=== PATIENT | female | born 2000 | race Caucasian/White ===

== ENCOUNTER 2021-12-16 11:34 | Emergency (ER) | payer MEDICAID, SELFPAY ==
[2021-12-16 11:47] VITALS: BP 117/64; PULSE 78; RESP 18; TEMP 36.9; O2SAT 98; BMI 33.4
--- NOTE | 2021-12-16 13:40 | ED.GENADULT ---
HPI - General Adult General Chief complaint: General Medical Stated complaint: work inj, stuck by needle Time Seen by Provider: 12/16/21 13:40 Source: patient Mode of arrival: ambulatory History of Present Illness HPI narrative: 21-year-old female with no significant past medical history presenting to the ED s/p accidental needle stick to left thumb while doing blood drawn patient [employer]. Reports washing area immediately after incident. Vaccinations including tetanus up-to-date. Reports patient was agreeable to be tested for hepatitis/HIV at her work Onset (ago): day(s) Related Data Allergies Allergy/AdvReac Type Severity Reaction Status Date / Time No Known Allergies Allergy Verified 12/16/21 13:41 Review of Systems Review of Systems: Constitutional: No Fever, No Chills ENT/Mouth: No Ear Pain, No Nasal Congestion, No sore throat, No Rhinorrhea, No Swallowing Difficulty Cardiovascular: No Chest Pain, No SOB Respiratory: No Cough, No Sputum Gastrointestinal: No Nausea, No Vomiting, No Diarrhea, No Constipation, No Abdominal pain Genitourinary: No Dysuria, No Urinary Frequency, No Hematuria Musculoskeletal: No joint pain, No Myalgias, No Joint Swelling Skin: + Skin Lesions, No rash Neuro: No Weakness, No Numbness, No Paresthesias Yes all other systems are reviewed and are negative Constitutional: Constitutional: Reports as per [facility] Past Medical History Attestation statement: The following information was validated with the patient. Social History Social History Advance Directives: No Advance Directives Information Provided: Yes Physical Exam ED Vital Signs: Vital Signs - 24 hr 12/16/21 11:47 Temperature 98.4 F Pulse Rate 78 Respiratory Rate 18 Blood Pressure 117/64 Pulse Oximetry 98 Oxygen Delivery Method Room Air BMI result Body Mass Index 33.4 Const General: cooperative, healthy appearing and no acute distress Orientation/consciousness: patient oriented x3 Limitations: no limitations HENMT Head: Yes normal to inspection and Yes atraumatic Ears: hearing grossly normal bilaterally General nose exam: Normal external nose present Face and sinus: Yes normal facial exam Eyes General: appearance normal, both eyes and all related structures EOM: EOMs intact bilaterally Neck Neck: Yes normal visual inspection and Yes no meningeal signs Resp Effort & Inspection: normal respiratory effort and no respiratory distress Cardio Rate: regular rate Heart sounds: S1 normal heart sound present and S2 normal heart sound present Peripheral pulses: radial pulses present and ulnar radial pulses present Skin Rashes: no rashes Wounds: no wounds Neuro General: patient oriented x3, tone normal and no meningeal signs Gait exam (Neuro): Normal gait present Extrem General: Yes normal to inspection Course Course Course Narrative: -labs unremarkable. Discussed initiating PEP with patient which she is agreeable, will give 1st 4 days worth of doses in the ED Medical Decision Making MDM Narrative Medical decision making narrative: 21-year-old female with no significant past medical history presenting to the ED s/p accidental needle stick to left thumb while doing blood drawn patient [employer]. On exam VSS, NAD, well appearing, pts vaccinations up to date. after discussion with patient she would like to initiate PEP Medical Records Medical records reviewed: Yes I reviewed the patient's medical records. Lab Data Lab results reviewed: Yes I reviewed the patient's lab results. Result diagrams: 12/16/21 13:53 12/16/21 13:53 Labs: Lab Results 12/16/21 12/16/21 12/16/21 Range/Units 13:53 13:53 14:49 WBC 5.4 (4.8-10.8) X10*3/uL RBC 4.48 (4.20-5.50) X10*6/uL Hgb 12.2 (12.0-16.0) g/dl Hct 38.4 (37.0-47.0) % MCV 85.7 (80.0-98.0) fL MCH 27.2 (27.0-33.0) pg MCHC 31.8 (31.0-35.0) g/dl RDW 14.4 (11.0-16.0) % Plt Count 351 (160-400) X10*3/uL MPV 9.8 (9.4-12.3) fL Immature Gran % (Auto) 0.0 (0.0-0.4) % Neut % (Auto) 53.7 (45-73) % Lymph % (Auto) 35.4 (20-40) % [place] % (Auto) 9.4 (2-11) % Eos % (Auto) 0.9 (0-4) % Baso % (Auto) 0.6 (0-2) % Lymph # (Auto) 1.9 (1.2-4.9) X10*3/uL [place] # (Auto) 0.5 (0.1-1.2) X10*3/uL Eos # (Auto) 0.1 (0.0-0.4) X10*3/uL Baso # (Auto) 0.0 (0.0-0.2) X10*3/uL Abs Immat Gran (auto) 0.00 (0.00-0.03) X10*3/uL Absolute Neuts (auto) 2.9 (2.0-8.3) x10*3/uL Absolute Nucleated RBC 0.000 (0.0-0.012) X10*3/uL Nucleated RBC % (auto) 0.0 (0.0-0.2) /100WBC Sodium 139 (135-145) mmol/L Potassium 4.3 (3.3-5.1) mmol/L Chloride 107 (96-108) mmol/L Carbon Dioxide 24 (22-29) mmol/L Anion Gap 12 (12-20) BUN 14 (9-16) mg/dL Creatinine 0.70 (0.5-1.4) mg/dL Estim Creat Clear Calc 106.6 Estimated GFR > 60 Random Glucose 86 (60-115) mg/dL Calcium 9.2 (8.4-10.2) mg/dL Total Bilirubin 0.2 (0.0-1.0) mg/dL Direct Bilirubin < 0.2 (0.0-0.5) mg/dL AST 15 (5-31) U/L ALT 13 (0-31) U/L Alkaline Phosphatase 98 (39-117) U/L Total Protein 7.7 (6.5-8.0) g/dL Albumin 4.4 (3.5-5.0) g/dL Urine Test NEGATIVE (NEGATIVE) Discharge Plan Discharge Clinical Impression: Accidental hypodermic needlestick injury Patient Disposition: Home, Self-Care Instructions: Needle Stick Injuries (ED) Additional Instructions: Your blood work was unremarkable today, your hepatitis and HIV studies are currently pending will call you with positive results only next 48-72 hours Please follow-up with [facility] with in the next 4 days Also follow-up with your work once they obtain patient's lab values, if patient is negative you may stop these medications Use medications may give you some abdominal discomfort, nausea, vomiting and diarrhea. Referrals: [facility] [Outside] - 2 days
[2021-12-16 14:04] LABS: MANUAL DIFF FLAG NO
[2021-12-16 14:12] LABS: Basophils Percent Auto 0.6 % (0-2); Eosinophils Absolute Auto 0.1 X10*3/uL (0.0-0.4); Eosinophils Percent Auto 0.9 % (0-4); Hematocrit 38.4 % (37.0-47.0); Hemoglobin 12.2 g/dl (12.0-16.0); Lymphocytes Absolute Auto 1.9 X10*3/uL (1.2-4.9); Lymphocytes Percent Auto 35.4 % (20-40); Mean Corpuscular HGB Conc 31.8 g/dl (31.0-35.0); Mean Corpuscular Hemoglobin 27.2 pg (27.0-33.0); Mean Corpuscular Volume 85.7 fL (80.0-98.0); Mean Platelet Volume 9.8 fL (9.4-12.3); Monocytes Absolute Auto 0.5 X10*3/uL (0.1-1.2); Monocytes Percent Auto 9.4 % (2-11); Neutrophils Absolute Auto 2.9 x10*3/uL (2.0-8.3); Neutrophils Percent Auto 53.7 % (45-73); Platelet Count 351 X10*3/uL (160-400); Red Blood Count 4.48 X10*6/uL (4.20-5.50); Red Cell Distribution Width 14.4 % (11.0-16.0); White Blood Count 5.4 X10*3/uL (4.8-10.8)
[2021-12-16 14:35] LABS: Alanine Aminotransferase 13 U/L (0-31); Albumin Level 4.4 g/dL (3.5-5.0); Alkaline Phosphatase 98 U/L (39-117); Anion Gap 12 (12-20); Aspartate Amino Transferase 15 U/L (5-31); Bilirubin Direct < 0.2 mg/dL (0.0-0.5); Bilirubin Total 0.2 mg/dL (0.0-1.0); Blood Urea Nitrogen 14 mg/dL (9-16); Calcium 9.2 mg/dL (8.4-10.2); Carbon Dioxide 24 mmol/L (22-29); Chloride 107 mmol/L (96-108); Creatinine Clr Calc Pharmacy 106.6; Estimated Glomerular Filt Rate > 60; Glucose Random 86 mg/dL (60-115); Potassium 4.3 mmol/L (3.3-5.1); Sodium 139 mmol/L (135-145); Total Protein 7.7 g/dL (6.5-8.0)
[2021-12-16 15:10] LABS: UPreg QC Valid YES; Urine Pregnancy NEGATIVE (NEGATIVE)
[2021-12-16] MEDS: Post Exposure Medication Kit 1 KIT PO (15:50)
[2021-12-17 05:20] LABS: HBc Num1 0.07 S/CO (0.00-0.79); HBsAGNum1 0.31 S/CO (0.00-0.99); HIV AB/AG Nonreactive (Nonreactive); HIV Num 1 0.06 S/CO (0.00-0.99); Hepatitis B Core Antibody Nonreactive (Nonreactive); Hepatitis B Surface Antigen Negative (Negative); ~HepC Num1 0.74 S/CO (0.00-0.79); ~Hepatitis B Surface Antibody REACTIVE (Nonreactive); ~Hepatitis C Antibody Nonreactive (Nonreactive)
== END 2021-12-16 15:52 | disposition home or self-care (01) ==
PROVIDERS: Physician Assistant; Emergency Provider Emergency Medicine; PCP Nurse Practitioner Gerontology
DX: Z20.828 Contact with and (suspected) exposure to other viral communicable diseases (principal); Z79.899 Other long term (current) drug therapy; Z20.822 Contact with and (suspected) exposure to COVID-19
CPT/HCPCS: 36415; 80048; 80076; 81025; 85025; 86704; 86706; 86803; 87340; 87389; 99282; 99283